=== PATIENT | male | born 1985 | race Caucasian/White ===

== ENCOUNTER 2023-08-01 08:02 | Emergency (ER) | payer SELFPAY ==
[2023-08-01 09:27] LABS: CORONAVIRUS COVID-19 NAA NEGATIVE (NEGATIVE); INFLUENZA A NAA NEGATIVE (NEGATIVE); INFLUENZA B NAA NEGATIVE (NEGATIVE); RESPIRATORY SYNCYTIAL VIR NAA NEGATIVE (NEGATIVE)
== END 2023-08-01 09:56 | disposition home or self-care (01) ==
LOC: JP.ED 08:02
DX: R06.02 Shortness of breath (principal); R07.89 Other chest pain; Z20.822 Contact with and (suspected) exposure to COVID-19
CPT/HCPCS: 0241U; 82947; 99284